=== PATIENT | male | born 1975 | race Caucasian/White ===

== ENCOUNTER 2018-01-16 00:25 | Inpatient (IN) | payer MEDICAID ==
[~2018-01-16] VITALS: Ht 170.2 cm; Wt 79.9 kg
[2018-01-16] VITALS (21 sets, daily range): BP systolic 96–155; BP diastolic 55–103
[2018-01-16] MEDS ORDERED: ONDANSETRON HCL 4 MG/2 ML VIAL IVP ONE (00:45)
[2018-01-16] MEDS ORDERED: PANTOPRAZOLE SODIUM 40 MG/VIAL IVP ONE (00:45)
[2018-01-16] MEDS ORDERED: MAGNESIUM SULFATE 2 GM, MVI, ADULT NO.1 WITH VIT K 10 ML, THIAMINE HCL 100 MG, FOLIC AC... IV ONE ×5 (00:45)
[2018-01-16 01:15] LABS: ANION GAP 10 mmol/L (8-16); BASOPHILS % (AUTO) 0.2 % (0.0-2.0); CALCIUM, TOTAL 7.8 mg/dL (8.8-10.5); CARBON DIOXIDE 29 mmol/L (22-29); CHLORIDE 105 mmol/L (98-107); CREATININE 0.88 mg/dL (0.60-1.30); EOSINOPHILS % (AUTO) 0.2 % (1.0-6.0); GLOMERULAR FILTR. RATE CALC > 60 mL/min (>60); GLUCOSE,RANDOM 140 mg/dL (70-110); HEMATOCRIT 25.3 % (41-53); HEMOGLOBIN 8.6 g/dL (13.5-17.5); LYMPHOCYTES # (AUTO) 0.1 K/uL (1.0-4.8); LYMPHOCYTES % (AUTO) 5.1 % (22.0-44.0); MEAN CORPUSCULAR HEMOGLOBIN 27.5 pg (26.0-34.0); MEAN CORPUSCULAR HGB CONC 33.8 G/dL (31.0-37.0); MEAN CORPUSCULAR VOLUME 81 fL (80-100); MONOCYTES # (AUTO) 0.1 K/uL (0.1-1.0); MONOCYTES % (AUTO) 4.3 % (2.0-9.0); NEUTROPHILS # (AUTO) 2.6 K/uL (1.8-7.7); POTASSIUM 3.9 mmol/L (3.5-5.1); RED BLOOD CELL COUNT(AUTO) 3.11 MIL/uL (4.50-5.90); RED CELL DISTRIBUTION WIDTH 16.8 % (11.5-14.5); SODIUM SERUM 144 mmol/L (136-145); UREA NITROGEN, BLOOD 16 mg/dL (7-18)
[2018-01-16 01:16] LABS: INR 1.3 (0.9-1.1); PROTHROMBIN TIME 13.2 SEC (9.4-11.6)
[2018-01-16] MEDS: PANTOPRAZOLE SODIUM 80 MG in SODIUM CHLORIDE 0.9% 100 ML IV SCH ×2 (01:17→10:12)
[2018-01-16 01:21] LABS: ALANINE AMINOTRANSFERASE 78 U/L (12-78); ALBUMIN 3.2 g/dL (3.4-5.0); ALKALINE PHOSPHATASE 146 U/L (46-116); ASPARTATE AMINOTRANSFERASE 128 U/L (15-37); BILIRUBIN,TOTAL 0.9 mg/dL (0.1-1.0); LIPASE 386 U/L (73-393); TOTAL PROTEIN, SERUM 6.3 g/dL (6.4-8.2)
[2018-01-16 01:22] LABS: NEUTROPHILS % (AUTO) 90.2 % (40.0-70.0)
[2018-01-16 02:04] LABS: LACTIC ACID 4.2 mmol/L (0.4-2.0)
[2018-01-16 02:11] LABS: PLATELET COUNT (AUTO) 29 K/uL (150-450)
[2018-01-16 02:12] LABS: PATHOLOGY REVIEW, DIFF YES
[2018-01-16 02:15] LABS: PLATELET MORPHOLOGY COMMENT LARGE PLTS PRESENT
[2018-01-16] MEDS ORDERED: OCTREOTIDE ACETATE 100 MCG/ML VIAL IVP ONE (02:30)
[2018-01-16] MEDS ORDERED: ONDANSETRON HCL 4 MG/2 ML VIAL IVP PRN ×2 (02:30→14:00)
[2018-01-16] MEDS ORDERED: 0.9% SODIUM CHLORIDE 10 ML SYRINGE IVP PRN (02:30)
[2018-01-16] MEDS ORDERED: ACETAMINOPHEN 500 MG TABLET PO ONE (03:15)
[2018-01-16] MEDS ORDERED: DiphenhydrAMINE HCL 25 MG CAPSULE PO ONE (03:15)
[2018-01-16] MEDS: OCTREOTIDE ACETATE 500 MCG in DEXTROSE 5%-WATER 97.5 ML IV SCH ×2 (04:07→12:30)
[2018-01-16] MEDS ORDERED: SODIUM CHLORIDE 0.9% 250 ML IV ONE (04:41)
[2018-01-16 07:58] LABS: HEMATOCRIT 25.2 % (41-53); HEMOGLOBIN 8.5 g/dL (13.5-17.5)
[2018-01-16 08:14] LABS: AMPHET/METH SCREEN,URINE NEGATIVE (NEGATIVE); BARBITURATE SCREEN, URINE NEGATIVE (NEGATIVE); BENZODIAZEPINES SCREEN,URINE NEGATIVE (NEGATIVE); CANNABINOID SCREEN,URINE NEGATIVE (NEGATIVE); COCAINE SCREEN,URINE NEGATIVE (NEGATIVE); METHADONE SCREEN, URINE NEGATIVE (NEGATIVE); OPIATE SCREEN,URINE NEGATIVE (NEGATIVE)
[2018-01-16 08:15] LABS: PHENCYCLIDINE SCREEN,URINE NEGATIVE (NEGATIVE)
[2018-01-16 08:44] LABS: APPEARANCE,URINE CLEAR (CLEAR); BILIRUBIN,URINE NEGATIVE (NEGATIVE); GLUCOSE, URINE (UA) NEGATIVE (NEGATIVE); KETONES,URINE TRACE mg/dL (NEGATIVE); LEUKOCYTE ESTERASE ,URINE NEGATIVE (NEGATIVE); NITRATE,URINE NEGATIVE (NEGATIVE); OCCULT BLOOD,URINE NEGATIVE (NEGATIVE); PROTEIN,URINE NEGATIVE (NEGATIVE)
[2018-01-16 10:21] LABS: HEMOGLOBIN 8.5 g/dL (13.5-17.5)
[2018-01-16 10:22] LABS: HEMATOCRIT 25.2 % (41-53)
[2018-01-16] MEDS ORDERED: SODIUM CHLORIDE 0.9% 1,000 ML IV ONE (10:55)
[2018-01-16] MEDS ORDERED: ALBUTEROL SULFATE 2.5 MG/0.5 ML NEB SOLUTION NEB PRN (14:00)
[2018-01-16] MEDS ORDERED: BISACODYL 10 MG RECTAL RECTAL SUPPOSITORY PR PRN (14:00)
[2018-01-16] MEDS ORDERED: ZOLPIDEM TARTRATE 5 MG TABLET PO PRN (14:00)
[2018-01-16] MEDS ORDERED: MORPHINE SULFATE 2 MG/ML SYRINGE IVP PRN (14:00)
[2018-01-16] MEDS ORDERED: HYDROCODONE/ACETAMINOPHEN 5-325 MG TABLET PO PRN (14:00)
[2018-01-16] MEDS ORDERED: MAGNESIUM HYDROXIDE SUSPENSION 30 ML UDCUP PO PRN (14:00)
[2018-01-16] MEDS ORDERED: ACETAMINOPHEN 325 MG TABLET PO PRN (14:00)
[2018-01-16] MEDS ORDERED: IPRATROPIUM BROMIDE 0.5 MG/2.5 ML NEB SOLUTION NEB PRN (14:00)
[2018-01-16] MEDS: ChlordiazePOXIDE HCL 25 MG CAPSULE PO PRN ×2 (16:03→20:17)
[2018-01-16] MEDS: DOCUSATE SODIUM 100 MG CAPSULE PO SCH (20:18)
[2018-01-17 03:30] VITALS: BP 133/81
[2018-01-17] MEDS ORDERED: PROPOFOL 1% 20 ML VIAL IVP ONE (05:55)
[2018-01-17] MEDS ORDERED: LIDOCAINE/PF 2% 5 ML VIAL IM ONE (05:55)
[2018-01-17 07:35] VITALS: BP 138/84
[2018-01-17] MEDS: ChlordiazePOXIDE HCL 25 MG CAPSULE PO PRN ×3 (07:44→22:38)
[2018-01-17] MEDS: PANTOPRAZOLE SODIUM 40 MG/VIAL IVP SCH (08:53)
[2018-01-17] MEDS: DOCUSATE SODIUM 100 MG CAPSULE PO SCH ×2 (08:53→20:56)
[2018-01-17 10:58] VITALS: BP 116/73
[2018-01-17 15:18] VITALS: BP 124/74
[2018-01-17 19:23] VITALS: BP 122/75
[2018-01-18 04:17] VITALS: BP 118/68
[2018-01-18 06:44] VITALS: BP 133/80
[2018-01-18 07:49] VITALS: BP 118/78
[2018-01-18] MEDS: PANTOPRAZOLE SODIUM 40 MG/VIAL IVP SCH (08:01)
[2018-01-18] MEDS: ChlordiazePOXIDE HCL 25 MG CAPSULE PO PRN ×2 (08:02→14:43)
[2018-01-18] MEDS: DOCUSATE SODIUM 100 MG CAPSULE PO SCH (08:02)
[2018-01-18 11:50] VITALS: BP 122/72
[2018-01-18 15:01] VITALS: BP 117/70
[2018-01-18 16:43] LABS: BASOPHILS % (AUTO) 0.3 % (0.0-2.0); EOSINOPHILS % (AUTO) 2.8 % (1.0-6.0); HEMATOCRIT 24.9 % (41-53); HEMOGLOBIN 8.4 g/dL (13.5-17.5); LYMPHOCYTES # (AUTO) 0.4 K/uL (1.0-4.8); LYMPHOCYTES % (AUTO) 18.9 % (22.0-44.0); MEAN CORPUSCULAR HEMOGLOBIN 27.7 pg (26.0-34.0); MEAN CORPUSCULAR HGB CONC 33.7 G/dL (31.0-37.0); MEAN CORPUSCULAR VOLUME 82 fL (80-100); MONOCYTES # (AUTO) 0.2 K/uL (0.1-1.0); NEUTROPHILS # (AUTO) 1.3 K/uL (1.8-7.7); RED BLOOD CELL COUNT(AUTO) 3.02 MIL/uL (4.50-5.90); RED CELL DISTRIBUTION WIDTH 16.7 % (11.5-14.5)
[2018-01-18] MEDS ORDERED: PANT40TA25 PO ×2 (16:48)
[2018-01-18] MEDS ORDERED: LIB25 PO (16:52)
[2018-01-18 17:03] LABS: PLATELET COUNT (AUTO) 25 K/uL (150-450)
[2018-01-18 17:12] LABS: ANION GAP 10 mmol/L (8-16); CALCIUM, TOTAL 8.4 mg/dL (8.8-10.5); CARBON DIOXIDE 25 mmol/L (22-29); CHLORIDE 104 mmol/L (98-107); CREATININE 0.78 mg/dL (0.60-1.30); GLOMERULAR FILTR. RATE CALC > 60 mL/min (>60); GLUCOSE,RANDOM 97 mg/dL (70-110); SODIUM SERUM 139 mmol/L (136-145); UREA NITROGEN, BLOOD 13 mg/dL (7-18)
[2018-01-18 17:18] LABS: ALANINE AMINOTRANSFERASE 54 U/L (12-78); ALBUMIN 3.1 g/dL (3.4-5.0); ALKALINE PHOSPHATASE 118 U/L (46-116); ASPARTATE AMINOTRANSFERASE 63 U/L (15-37); BILIRUBIN,TOTAL 0.7 mg/dL (0.1-1.0); TOTAL PROTEIN, SERUM 6.2 g/dL (6.4-8.2)
[2018-01-18] MEDS ORDERED: DSS100 PO (17:36)
[2018-01-18] MEDS ORDERED: FERR324T4 PO (17:36)
== END 2018-01-18 18:05 | disposition home or self-care (01) | DRG 253 ==
LOC: EMS 00:28 → ICU 02:20 → 6N 17:33 → 5S 01-18 06:08
PROVIDERS: ADMIT Hospitalist; ATTEND Hospitalist
PROC: 30233R1 Transfusion of Nonautologous Platelets into Peripheral Vein, Percutaneous Approach (ICD-10-PCS; 2018-01-16)
PROC: 30233N1 Transfusion of Nonautologous Red Blood Cells into Peripheral Vein, Percutaneous Approach (ICD-10-PCS; 2018-01-16)
PROC: 0DJ08ZZ Inspection of Upper Intestinal Tract, Via Natural or Artificial Opening Endoscopic (ICD-10-PCS; principal; 2018-01-16 12:30)
DX: K92.2 Gastrointestinal hemorrhage, unspecified (principal); D61.818 Other pancytopenia; E44.0 Moderate protein-calorie malnutrition; K70.30 Alcoholic cirrhosis of liver without ascites; F10.129 Alcohol abuse with intoxication, unspecified; D50.0 Iron deficiency anemia secondary to blood loss (chronic); F17.210 Nicotine dependence, cigarettes, uncomplicated; I10 Essential (primary) hypertension; K31.89 Other diseases of stomach and duodenum; I85.00 Esophageal varices without bleeding; Y90.7 Blood alcohol level of 200-239 mg/100 ml; Z71.41 Alcohol abuse counseling and surveillance of alcoholic; Z68.27 Body mass index [BMI] 27.0-27.9, adult
CPT/HCPCS: 36430; 80074; 83605; 85014; 85018; 85049; 86850; 86900; 86901; 86920; 87081; 93005; 96365; 96366; 96375; 99291; C9113; G0480; J2354; J2405; J2704; J3411; J3475; J3490; J7030; J7050; J7060; P9016; P9035